=== PATIENT | female | born 1995 | race Caucasian/White ===

== ENCOUNTER 2016-09-10 13:25 | Inpatient (IN) | payer SELFPAY ==
[~2016-09-10] VITALS: Ht 154.9 cm; Wt 49.6 kg
--- NOTE | ~2016-09-10 | CON ---
[place], [place] REPORT OF CONSULTATION NAME: HIMANSHU SERNA UNIT #: [id number] ROOM: 532 DOCTOR: AME AGUILAR MD BIRTHDATE: [birth year] DOS: 09/11/2016 INPATIENT CONSULTATION CHIEF COMPLAINT: Right peritonsillar abscess. HISTORY OF PRESENT ILLNESS: The patient is a 21-year-old white female with a 1-week history of progressive sore throat and swelling. She presented to the Emergency Department yesterday with complaints of right-sided ear pain, fever to 103 degrees. She also experienced some chills, throat swelling and difficulty swallowing. A CT scan of the soft tissues of the neck was performed, which identified a 3 cm right peritonsillar abscess. The patient was admitted to the hospitalist service and started on IV antibiotics with Unasyn. She has clinically improved overnight. She is resting comfortably in bed on the fifth floor. The patient's white blood cell count was almost 20,000 upon admission and has decreased to 12.6 today. PAST MEDICAL HISTORY: Unremarkable. PATIENT'S SURGICAL HISTORY: No history of previous surgeries. SOCIAL HISTORY: The patient denies alcohol use, tobacco use or illicit drug use. She is employed at the [employer] in [place], [place]. FAMILY HISTORY: Mother alive at age 56, no medical problems. Paternal history, unknown. CURRENT MEDICATIONS: Unasyn, Restoril, morphine sulfate, [place]. ALLERGIES: There are no known drug allergies. PHYSICAL EXAMINATION: GENERAL: The patient is awake, alert, pleasant, cooperative. HEENT: Oral cavity shows significant right peritonsillar swelling consistent with a peritonsillar abscess. NECK: Supple. HEART: Has a regular rate and rhythm. LUNGS: Clear to auscultation. IMPRESSION: Right peritonsillar abscess. PLAN: The patient will be taken to the operating room for incision and drainage of right peritonsillar abscess and possible right tonsillectomy. Informed consent obtained. Procedure will be done today. [place], [place] REPORT OF CONSULTATION NAME: HIMANSHU SERNA UNIT #: [id number] ROOM: 532 DOCTOR: AME AGUILAR MD BIRTHDATE: [birth year] AME AGUILAR MD CM:CONSTR:REPORT OF CONSULTATION 1029 09/11/16 1242 interface
--- NOTE | ~2016-09-10 | PR ---
[place], [place] PROGRESS NOTE NAME: HIMANSHU SERNA [facility] #: [id number] UNIT #: [id number] ROOM: 532 DOCTOR: AME AGUILAR MD BIRTHDATE: [birth year] DOS: 09/11/2016 TIME: 1330 hours. The patient has underwent right tonsillectomy for surgical treatment of a right peritonsillar abscess. The procedure went well. Postoperatively, the patient will be able to be placed on a soft diet, which I have ordered. Pain control could include oxycodone oral solution 5 mg q.4 hours p.r.n. Antibiotic therapy should continue and if the patient remains stable, she may be able to be discharged to home tomorrow. She should arrange followup with ENT within 10 days. AME AGUILAR MD CM:PNTRANS 1335 1347 AME AGUILAR MD 09/11/16 1347 interface
--- NOTE | ~2016-09-10 | O ---
[place], [place] OPERATIVE NOTE [id number] UNIT #: [id number] ROOM: [facility] DOCTOR: AME AGUILAR MD BIRTHDATE: [birth year] DOS: 09/11/2016 PREOPERATIVE DIAGNOSIS: Right peritonsillar abscess. POSTOPERATIVE DIAGNOSIS: Right peritonsillar abscess. PROCEDURE: Right tonsillectomy. ESTIMATED BLOOD LOSS: 50 mL. SPECIMENS: Right palatine tonsil. COMPLICATIONS: There were no drains or packing. No assistance. ANESTHESIA: General endotracheal. The patient is a 21-year-old white female was taken to the operating room for treatment of her right peritonsillar abscess. DESCRIPTION OF PROCEDURE: Following induction of general endotracheal anesthesia, the patient was positioned supine on the OR table and draped in the standard fashion for tonsillectomy. The mouth was exposed using McIvor retractor. The right peritonsillar region showed significant swelling and a midline shift to the left, 3 mL of 1% lidocaine with 1:100,000 epinephrine was injected into the right peritonsillar tissues. Right palatine tonsillectomy was performed. An abscess cavity was encountered. Mucopurulent material was suctioned from the abscess cavity. The excised tonsils submitted to the pathology for histologic analysis. Bleeding was controlled with electrical cautery. At the end of the case, all instrument and sponge counts were correct. The patient was awakened, extubated and transported to PACU in satisfactory condition. AME AGUILAR MD CM:OPRECORD:OPERATIVE NOTE 1330 1555 AME AGUILAR MD 09/11/16 1556 interface
[2016-09-10 13:26] VITALS: BP 131/85
[2016-09-10 14:03] LABS: BASO # 0.1 10*3/uL (0.0-0.1); BASO % 0.4 % (0.0-1.0); EOS # 0.1 10*3/uL (0.0-0.4); EOS % 0.7 % (1.0-4.0); HEMATOCRIT 40.7 % (37.0-47.0); HEMOGLOBIN 13.2 g/dl (12.0-16.0); IG # 0.1 10*3/uL (0.0-0.1); LYMPH # 1.2 10*3/uL (1.3-4.4); LYMPH % 6.2 % (27.0-41.0); MEAN CORPUSCULAR HGB 28.2 pg (27.0-31.0); MEAN CORPUSCULAR HGB CONC 32.4 g/dl (33.0-37.0); MEAN PLATELET VOLUME 9.5 fl (9.6-12.3); MONO # 1.2 10*3/uL (0.1-1.0); MONO % 5.9 % (3.0-9.0); NEUT # 17.1 10*3/uL (2.3-7.9); NEUT % 86.2 % (47.0-73.0); PLATELET COUNT AUTOMATED 336 10*3/uL (130-400); RED BLOOD COUNT 4.68 10*6/uL (4.10-5.10); RED CELL DISTRI WIDTH 13.2 % (0-14.5); WHITE BLOOD COUNT 19.8 10*3/uL (4.8-10.8)
[2016-09-10 14:28] LABS: ALBUMIN 3.7 gm/dl (3.1-4.5); ALKALINE PHOSPHATASE 107 U/L (45-117); BILIRUBIN, TOTAL 0.4 mg/dl (0.2-1.0); BUN 14 mg/dl (7-24); CARBON DIOXIDE 20 mmol/L (21-32); CHLORIDE 105 mmol/L (98-107); EST GLOM FILT AFRICAN AMERICAN > 60 ml/min; GLUCOSE 62 mg/dL (65-99); POTASSIUM 3.9 mmol/L (3.5-5.1); SGOT/AST 10 IU/L (3-35); SGPT/ALT 13 U/L (12-78); SODIUM 138 mmol/L (136-145); TOTAL PROTEIN 9.5 gm/dL (6.4-8.2)
[2016-09-10 16:43] VITALS: BP 111/70
[2016-09-10 17:10] VITALS: BP 131/83
[2016-09-10 20:00] VITALS: BP 125/70
[2016-09-11] VITALS (11 sets, daily range): BP systolic 93–135; BP diastolic 52–93
[2016-09-11 06:22] LABS: BASO % 0.2 % (0.0-1.0); HEMATOCRIT 35.6 % (37.0-47.0); HEMOGLOBIN 11.6 g/dl (12.0-16.0); IG # 0.1 10*3/uL (0.0-0.1); LYMPH # 0.9 10*3/uL (1.3-4.4); LYMPH % 7.3 % (27.0-41.0); MEAN CELL VOLUME 86.8 fl (81.0-99.0); MEAN CORPUSCULAR HGB 28.3 pg (27.0-31.0); MEAN CORPUSCULAR HGB CONC 32.6 g/dl (33.0-37.0); MEAN PLATELET VOLUME 9.8 fl (9.6-12.3); MONO # 0.6 10*3/uL (0.1-1.0); MONO % 4.6 % (3.0-9.0); NEUT % 87.3 % (47.0-73.0); PLATELET COUNT AUTOMATED 283 10*3/uL (130-400); RED CELL DISTRI WIDTH 13.1 % (0-14.5); WHITE BLOOD COUNT 12.6 10*3/uL (4.8-10.8)
[2016-09-11 06:37] LABS: BUN 9 mg/dl (7-24); CARBON DIOXIDE 23 mmol/L (21-32); CHLORIDE 110 mmol/L (98-107); CHOLESTEROL 116 mg/dL (<200); EST GLOM FILT AFRICAN AMERICAN > 60 ml/min; FREE T4 1.43 ng/dl (0.76-1.46); GLUCOSE 196 mg/dL (65-99); HDL CHOLESTEROL 40 mg/dl (40-60); LDL CHOLESTEROL 64 mg/dL (9-159); POTASSIUM 4.1 mmol/L (3.5-5.1); SODIUM 139 mmol/L (136-145); TRIGLYCERIDES 62 mg/dl (<150); VLDL CHOLESTEROL 12 mg/dL (6-40)
[2016-09-11 06:44] LABS: THYROID STIM HORMONE (HS) 0.523 uIU/ml (0.358-4.75)
[2016-09-11 07:22] LABS: HEMOGLOBIN A1c 5.6 % (4.8-5.6)
[2016-09-11 08:13] LABS: VITAMIN D, 25-HYDROXY 9.7 ng/mL (30-100)
[2016-09-11 08:14] LABS: FOLIC ACID 3.82 ng/mL (>5.38)
[2016-09-12] VITALS: BP 100/58
[2016-09-12 08:00] VITALS: BP 101/64
[2016-09-12 12:00] VITALS: BP 118/78; BP 120/80
[2016-09-12] MEDS ORDERED: AUGMENTIN 875875 MG PO (14:07)
[2016-09-12] MEDS ORDERED: NATURE'S BLEND F1 MG PO (14:07)
[2016-09-12] MEDS ORDERED: VITAMIN D50000 I3 PO (14:07)
== END 2016-09-12 15:57 | disposition home or self-care (01) | DRG 854 ==
LOC: ED 13:25 → 5E 15:40 → EDHOLD 15:40 → 5E 16:05
PROVIDERS: Internal Medicine; Nurse Practitioner Family
PROC: 0CTPXZZ Resection of Tonsils, External Approach (ICD-10-PCS; principal; 2016-09-11)
DX: A41.9 Sepsis, unspecified organism (principal); J36 Peritonsillar abscess